=== PATIENT | male | born 1960 | race American Indian/Alaskan Native ===

== ENCOUNTER 2022-07-19 01:22 | Inpatient (IN) | payer MEDICARE, SELFPAY ==
[~2022-07-19] VITALS: Ht 175.3 cm; Wt 54.9 kg
[2022-07-19] MEDS ORDERED: ANEXSIA, NORCO 7.5MG/325MG TABLET(HYDROCODONE/APAP) PO ONE ×2 (02:05→06:25)
[2022-07-19 05:32] LABS: BASO # 0.1 10^3/uL (0.0-0.2); BASO % 0.7 % (0.0-1.0); EOS # 0.1 10^3/uL (0.0-0.5); EOS % 0.5 % (0.0-3.0); HEMATOCRIT 36.7 % (42.0-52.0); HEMOGLOBIN 12.6 g/dl (13.5-17.5); LYMPH # 1.4 10^3/uL (1.5-5.0); LYMPH % 14.3 % (24.0-44.0); MEAN CORPUSCULAR HEMOGLOBIN 33.7 pg (27.0-33.0); MEAN CORPUSCULAR HGB CONC 34.3 g/dl (32.0-36.5); MEAN CORPUSCULAR VOLUME 98.1 fl (80.0-96.0); MONO # 0.7 10^3/uL (0.0-0.8); MONO % 7.3 % (2.0-8.0); NEUTROPHILS # 7.2 10^3/uL (1.5-8.5); NEUTROPHILS % 76.4 % (36.0-66.0); PLATELET COUNT, AUTOMATED 303 10^3/uL (150-450); RED BLOOD COUNT 3.74 10^6/uL (4.30-6.10); WHITE BLOOD COUNT 9.4 10^3/uL (4.0-10.0)
[2022-07-19] MEDS ORDERED: HOME MED LIST COMPLETE! XX SCH (05:55)
[2022-07-19 05:59] LABS: BLOOD UREA NITROGEN 9 MG/DL (7-18); CALCIUM LEVEL 8.4 MG/DL (8.8-10.2); CARBON DIOXIDE LEVEL 23 MEQ/L (21-32); CHLORIDE LEVEL 109 MEQ/L (98-107); CREATININE FOR GFR 0.58 MG/DL (0.70-1.30); GLOMERULAR FILTRATION RATE > 60.0 (>49); GLUCOSE, FASTING 72 MG/DL (70-100); MAGNESIUM LEVEL 2.2 MG/DL (1.8-2.4); POTASSIUM SERUM 3.7 MEQ/L (3.5-5.1); SODIUM LEVEL 141 MEQ/L (136-145)
[2022-07-19] MEDS ORDERED: DEXTROSE 50% 50 ML SYRINGE IV PRN (06:30)
[2022-07-19] MEDS ORDERED: GLUCAGON INJ 1MG VIAL SC PRN (06:30)
[2022-07-19] MEDS ORDERED: GLUCOSE 4GM CHEW TABLET PO PRN (06:30)
[2022-07-19] MEDS ORDERED: NICOTINE 14 MG/24 HR TRANSDERMAL TD ONE (07:00)
[2022-07-19 07:55] LABS: RSV AMPLIFICATION NEGATIVE (NEGATIVE)
[2022-07-19 08:12] LABS: ALBUMIN 3.2 GM/DL (3.2-5.2); BILIRUBIN,DIRECT 0.2 MG/DL (0.0-0.2); BILIRUBIN,TOTAL 0.4 MG/DL (0.2-1.0); TOTAL PROTEIN 6.2 GM/DL (6.4-8.2)
[2022-07-19] MEDS: ACETAMINOPHEN TAB 650MG DOSE (2X325MG) PO PRN ×4 (08:30→20:41)
[2022-07-19 08:52] LABS: INR 0.88; PROTHROMBIN TIME 12.4 SECONDS (12.7-14.5)
[2022-07-19 08:53] LABS: PARTIAL THROMBOPLASTIN TIME 28.3 SECONDS (25.9-37.0)
[2022-07-19 12:00] VITALS: BP 176/106
[2022-07-19 14:00] VITALS: BP 173/107
[2022-07-19 15:41] VITALS: BP 168/97
[2022-07-19] MEDS ORDERED: HYDROMORPHONE HCL 0.5 MG/ 0.5 ML SYRINGE (J1170 PER 1) IV PRN ×2 (16:45)
[2022-07-19 22:00] VITALS: BP 166/95
[2022-07-19] MEDS: D5W/0.9% SODIUM CHLORIDE 1,000 ML IV SCH (23:42)
[2022-07-20 06:00] VITALS: BP 165/92
[2022-07-20 06:19] LABS: HEMATOCRIT 39.6 % (42.0-52.0); HEMOGLOBIN 13.7 g/dl (13.5-17.5); MEAN CORPUSCULAR HEMOGLOBIN 33.8 pg (27.0-33.0); MEAN CORPUSCULAR HGB CONC 34.6 g/dl (32.0-36.5); MEAN CORPUSCULAR VOLUME 97.8 fl (80.0-96.0); PLATELET COUNT, AUTOMATED 325 10^3/uL (150-450); RED BLOOD COUNT 4.05 10^6/uL (4.30-6.10); WHITE BLOOD COUNT 7.1 10^3/uL (4.0-10.0)
[2022-07-20 06:59] LABS: ALBUMIN 3.2 GM/DL (3.2-5.2); ALT/SGPT 66 U/L (12-78); BILIRUBIN,TOTAL 0.7 MG/DL (0.2-1.0); BLOOD UREA NITROGEN 10 MG/DL (7-18); CALCIUM LEVEL 8.8 MG/DL (8.8-10.2); CARBON DIOXIDE LEVEL 27 MEQ/L (21-32); CHLORIDE LEVEL 108 MEQ/L (98-107); CREATININE FOR GFR 0.77 MG/DL (0.70-1.30); GLOMERULAR FILTRATION RATE > 60.0 (>49); GLUCOSE, FASTING 128 MG/DL (70-100); POTASSIUM SERUM 4.1 MEQ/L (3.5-5.1); SODIUM LEVEL 137 MEQ/L (136-145); TOTAL PROTEIN 6.9 GM/DL (6.4-8.2)
[2022-07-20] MEDS: ACETAMINOPHEN TAB 650MG DOSE (2X325MG) PO PRN (09:10)
[2022-07-20] MEDS ORDERED: PERCOCET 5MG/325MG TAB PO PRN (10:50)
[2022-07-20] MEDS: PERCOCET 5MG/325MG TAB PO PRN ×3 (12:53→21:15)
[2022-07-20 14:00] VITALS: BP 139/84
[2022-07-20] MEDS: D5W/0.9% SODIUM CHLORIDE 1,000 ML IV SCH ×2 (15:01→18:49)
[2022-07-20] MEDS: NICOTINE 21MG/24HR 1 EA TRANSDERMAL TD SCH (15:01)
[2022-07-20 21:57] VITALS: BP 170/84
[2022-07-20 22:30] VITALS: BP 170/94
[2022-07-21 00:23] VITALS: BP 170/82
[2022-07-21] MEDS ORDERED: atenoloL 25 MG TAB PO ONE (01:00)
[2022-07-21] MEDS ORDERED: diphenhydrAMINE 25MG CAP PO PRN (01:05)
[2022-07-21] MEDS: PERCOCET 5MG/325MG TAB PO PRN ×4 (01:10→13:49)
[2022-07-21 02:03] VITALS: BP 150/80
[2022-07-21] MEDS: D5W/0.9% SODIUM CHLORIDE 1,000 ML IV SCH (04:13)
[2022-07-21 06:02] VITALS: BP 51/84
[2022-07-21 07:00] LABS: HEMATOCRIT 36.1 % (42.0-52.0); HEMOGLOBIN 11.9 g/dl (13.5-17.5); MEAN CORPUSCULAR HEMOGLOBIN 32.6 pg (27.0-33.0); MEAN CORPUSCULAR VOLUME 98.9 fl (80.0-96.0); PLATELET COUNT, AUTOMATED 274 10^3/uL (150-450); RED BLOOD COUNT 3.65 10^6/uL (4.30-6.10); WHITE BLOOD COUNT 7.8 10^3/uL (4.0-10.0)
[2022-07-21 07:35] VITALS: BP 148/83
[2022-07-21 07:39] LABS: ALBUMIN 2.9 GM/DL (3.2-5.2); ALT/SGPT 44 U/L (12-78); BILIRUBIN,TOTAL 0.7 MG/DL (0.2-1.0); BLOOD UREA NITROGEN 5 MG/DL (7-18); CALCIUM LEVEL 8.6 MG/DL (8.8-10.2); CARBON DIOXIDE LEVEL 22 MEQ/L (21-32); CHLORIDE LEVEL 106 MEQ/L (98-107); CREATININE FOR GFR 0.65 MG/DL (0.70-1.30); GLOMERULAR FILTRATION RATE > 60.0 (>49); GLUCOSE, FASTING 137 MG/DL (70-100); POTASSIUM SERUM 3.8 MEQ/L (3.5-5.1); SODIUM LEVEL 136 MEQ/L (136-145); TOTAL PROTEIN 5.8 GM/DL (6.4-8.2)
[2022-07-21] MEDS ORDERED: FUROSEMIDE 40MG/4ML VIAL (J1940) IV ONE (09:00)
[2022-07-21 09:24] LABS: NT-PRO BNP 342 PG/ML (<125)
[2022-07-21] MEDS: NICOTINE 21MG/24HR 1 EA TRANSDERMAL TD SCH (09:35)
[2022-07-21] MEDS ORDERED: ALBUTEROL SULFATE 2.5 MG/0.5 ML INH NEB SOLN NEB PRN (10:05)
[2022-07-21] MEDS ORDERED: VENTAER INH (11:29)
[2022-07-21] MEDS ORDERED: NAPR-849 PO (11:29)
[2022-07-21] MEDS ORDERED: OXYC1TAB23 PO (11:29)
[2022-07-21 11:38] LABS: FOLATE 13.2 NG/ML (>5.4)
== END 2022-07-21 14:30 | disposition home or self-care (01) | DRG 563 ==
LOC: M ED 01:22 → EDBD 01:22 → M ED INP 06:37 → ENRESERV 08:12 → M MS5PR 11:50
PROVIDERS: ADMIT Family Medicine; ATTEND Internal Medicine
DX: S42.021A Displaced fracture of shaft of right clavicle, initial encounter for closed fracture (principal); I10 Essential (primary) hypertension; D53.9 Nutritional anemia, unspecified; F31.9 Bipolar disorder, unspecified; R07.81 Pleurodynia; Z59.00 Homelessness unspecified; F17.200 Nicotine dependence, unspecified, uncomplicated; Z88.5 Allergy status to narcotic agent; Y04.0XXA Assault by unarmed brawl or fight, initial encounter; Y92.838 Other recreation area as the place of occurrence of the external cause

== ENCOUNTER 2022-07-24 11:24 | Emergency (ER) | payer MEDICARE ==
[~2022-07-24] VITALS: Ht 175.3 cm; Wt 57.0 kg
[~2022-07-24 11:24] MED LIST: NAPR-849 PO; OXYC1TAB23 PO; VENTAER INH
[2022-07-24] MEDS ORDERED: IBUPROFEN 600MG TAB PO ONE (14:55)
[2022-07-24 17:24] VITALS: BP 121/57
== END 2022-07-24 12:30 | disposition left against medical advice (07) ==
LOC: M ED 11:24
DX: Z53.21 Procedure and treatment not carried out due to patient leaving prior to being seen by health care provider (principal)

== ENCOUNTER → 2022-09-11 | Outpatient (CLI) | payer MEDICARE | LOC: M SOG 15:38 | PROVIDERS: ATTEND Student in an Organized Health Care Education/Training Program | DX: S42.001D Fracture of unspecified part of right clavicle, subsequent encounter for fracture with routine healing (principal) ==

== ENCOUNTER → 2022-09-24 | Outpatient (REF) | payer MEDICARE ==
[2022-09-24 19:34] LABS: ALBUMIN 3.9 GM/DL (3.2-5.2); ALT/SGPT 64 U/L (12-78); BILIRUBIN,TOTAL 1.1 MG/DL (0.2-1.0); BLOOD UREA NITROGEN 8 MG/DL (7-18); CALCIUM LEVEL 9.9 MG/DL (8.8-10.2); CARBON DIOXIDE LEVEL 28 MEQ/L (21-32); CHLORIDE LEVEL 104 MEQ/L (98-107); CHOLESTEROL LEVEL 194 MG/DL (<200); CREATININE FOR GFR 0.95 MG/DL (0.70-1.30); GLOMERULAR FILTRATION RATE > 60.0 (>49); GLUCOSE, FASTING 118 MG/DL (70-100); HDL CHOLESTEROL 131 MG/DL (>40); LDL CHOLESTEROL 51 MG/DL (<100); NON-HDL-C 63 MG/DL; POTASSIUM SERUM 5.1 MEQ/L (3.5-5.1); SODIUM LEVEL 137 MEQ/L (136-145); TOTAL PROTEIN 7.6 GM/DL (6.4-8.2); TRIGLYCERIDES LEVEL 58 MG/DL (<150)
== END ==
LOC: M LAB REF 16:24
PROVIDERS: ATTEND Nurse Practitioner Family
DX: I10 Essential (primary) hypertension (principal); Z13.228 Encounter for screening for other metabolic disorders

== ENCOUNTER → 2022-10-30 | Outpatient (CLI) | payer MEDICARE | LOC: M SOG 09:14 | PROVIDERS: ATTEND Orthopaedic Surgery Adult Reconstructive Orthopaedic Surgery | DX: M25.761 Osteophyte, right knee (principal) ==

== ENCOUNTER → 2022-11-06 | Outpatient (CLI) | payer MEDICARE | LOC: M SOG 09:18 | PROVIDERS: ATTEND Student in an Organized Health Care Education/Training Program | DX: S42.001D Fracture of unspecified part of right clavicle, subsequent encounter for fracture with routine healing (principal); Z53.9 Procedure and treatment not carried out, unspecified reason ==

== ENCOUNTER 2023-06-26 14:56 | Emergency (ER) | payer MEDICARE, MEDICAID ==
[~2023-06-26] VITALS: Ht 175.3 cm; Wt 54.5 kg
[~2023-06-26 14:56] MED LIST changes: +BENZ200C70 PO; +GABA-1171 PO; +LOPE2TAB14 PO; +NAPR-837 PO; +NICO1DIS7 TD; +PRAZ1CAP PO; +ROSU20TA61 PO
[2023-06-26 15:13] VITALS: BP 166/96; TEMP 97.1; O2SAT 90
== END 2023-06-26 16:30 | disposition left against medical advice (07) ==
LOC: EDBD 14:56 → M ED 16:24
DX: Z53.21 Procedure and treatment not carried out due to patient leaving prior to being seen by health care provider (principal)

== ENCOUNTER 2023-07-24 18:08 | Emergency (ER) | payer MEDICARE, MEDICAID | END 2023-07-24 20:44 | disposition left against medical advice (07) | LOC: M ED 18:08 | DX: Z53.21 Procedure and treatment not carried out due to patient leaving prior to being seen by health care provider (principal) ==

== ENCOUNTER → 2023-09-03 | Outpatient (CLI) | payer MEDICARE, MEDICAID | LOC: M RAD 12:22 | PROVIDERS: ATTEND Family Medicine Addiction Medicine | DX: M25.521 Pain in right elbow (principal); S52.021D Displaced fracture of olecranon process without intraarticular extension of right ulna, subsequent encounter for closed fracture with routine healing ==

== ENCOUNTER → 2023-09-11 | Outpatient (CLI) | payer MEDICARE, MEDICAID | LOC: M SOG 10:47 | PROVIDERS: ATTEND Orthopaedic Surgery Hand Surgery | DX: S52.021A Displaced fracture of olecranon process without intraarticular extension of right ulna, initial encounter for closed fracture (principal); Y93.9 Activity, unspecified; Y92.9 Unspecified place or not applicable ==

== ENCOUNTER → 2023-09-18 | Outpatient (REF) | payer MEDICARE, MEDICAID ==
[2023-09-18 15:30] LABS: ALBUMIN 4.2 G/DL (3.2-5.2); ALKALINE PHOSPHATASE 130 U/L (46-116); ALT/SGPT 14 U/L (7.0-40); AST/SGOT 16 U/L (<34); BILIRUBIN,TOTAL 0.8 MG/DL (0.3-1.2); BLOOD UREA NITROGEN 6 MG/DL (9-23); CALCIUM LEVEL 9.9 MG/DL (8.3-10.6); CARBON DIOXIDE LEVEL 28 MMOL/L (20-31); CHLORIDE LEVEL 105 MMOL/L (98-107); CREATININE FOR GFR 0.72 MG/DL (0.70-1.30); GLOMERULAR FILTRATION RATE > 60.0 (>49); GLUCOSE, FASTING 91 MG/DL (74-106); POTASSIUM SERUM 5.4 MMOL/L (3.5-5.1); SODIUM LEVEL 139 MMOL/L (136-145); TOTAL PROTEIN 7.2 G/DL (5.7-8.2)
== END ==
LOC: M LAB REF 12:24
PROVIDERS: ATTEND Family Medicine Addiction Medicine
DX: T39.311A Poisoning by propionic acid derivatives, accidental (unintentional), initial encounter (principal)

== ENCOUNTER → 2023-10-08 | Outpatient (CLI) | payer MEDICARE, MEDICAID | LOC: M SOG 13:18 | PROVIDERS: ATTEND Physician Assistant | DX: S52.021D Displaced fracture of olecranon process without intraarticular extension of right ulna, subsequent encounter for closed fracture with routine healing (principal); M25.531 Pain in right wrist ==

== ENCOUNTER → 2023-11-09 | Outpatient (CLI) | payer MEDICARE, MEDICAID | LOC: M SOG 08:06 | PROVIDERS: ATTEND Physician Assistant | DX: S52.021D Displaced fracture of olecranon process without intraarticular extension of right ulna, subsequent encounter for closed fracture with routine healing (principal); Z53.9 Procedure and treatment not carried out, unspecified reason ==

== ENCOUNTER → 2023-11-18 | Outpatient (CLI) | payer MEDICARE, MEDICAID | LOC: M SOG 07:58 | PROVIDERS: ATTEND Physician Assistant | DX: S52.021D Displaced fracture of olecranon process without intraarticular extension of right ulna, subsequent encounter for closed fracture with routine healing (principal); Z53.9 Procedure and treatment not carried out, unspecified reason ==

== ENCOUNTER 2024-03-03 09:40 | Day surgery (SDC) | payer MEDICARE, MEDICAID ==
[~2024-03-03] VITALS: Ht 175.3 cm; Wt 63.6 kg
[~2024-03-03 09:40] MED LIST changes: +ATROPINE SULFATE 1% OPHTH SOLN 2ML BTL OS SCH; +DULO1CAP5 PO; +LIDOCAINE 3.5 % 1ML OPHTH TOPICAL GEL OU ONE; +MIDAZOLAM INJ 2MG/2ML VIAL As Ordered ONE; +OFLOXACIN 0.3 % (OCUFLOX) OPTH SOL 5ML OS ONE; +PHENYLEPHRINE 10% OPHTH SOL 5ML OS PRN; +PHENYLEPHRINE 2.5% OPHTH SOL 2ML OS SCH; +TROPICAMIDE 1% OPHTH SOLN 15ML OS SCH; +fentaNYL 100 MCG/2 ML INJECTION As Ordered ONE
[2024-03-03] MEDS: OFLOXACIN 0.3 % (OCUFLOX) OPTH SOL 5ML OS ONE (10:20)
[2024-03-03] MEDS: LIDOCAINE 3.5 % 1ML OPHTH TOPICAL GEL OU ONE (10:20)
[2024-03-03] MEDS: PHENYLEPHRINE 2.5% OPHTH SOL 2ML OS SCH (10:31)
[2024-03-03] MEDS: ATROPINE SULFATE 1% OPHTH SOLN 2ML BTL OS SCH (10:31)
[2024-03-03] MEDS: TROPICAMIDE 1% OPHTH SOLN 15ML OS SCH (10:31)
[2024-03-03] MEDS: LIDOCAINE 1% SDV 5ML VIAL As Ordered ONE (11:11)
[2024-03-03] MEDS: BSS IRRIG/VANCO(10MG)/TOBRA(5MG)/EPINEPH(1:1000-0.5CC)500ML BAG-ORONLY As Ordered ONE (11:18)
[2024-03-03] MEDS: CEFUROXIME 1MG/0.1ML INTRACAMERAL INJ As Ordered ONE (11:19)
[2024-03-03] MEDS ORDERED: DUOVISC (0.50ML VISCOAT/0.85ML PROVISC) OPHTH KIT As Ordered ONE (11:23)
[2024-03-03] MEDS: CARBACHOL 0.01% OPHTH SOLN 1.5ML VIAL As Ordered ONE (11:32)
[2024-03-03 11:40] VITALS: BP 161/83; TEMP 97; O2SAT 96
== END 2024-03-03 12:30 | disposition home or self-care (01) ==
LOC: M SDC 09:40
PROVIDERS: ATTEND Ophthalmology
DX: H25.12 Age-related nuclear cataract, left eye (principal); F41.9 Anxiety disorder, unspecified; F32.A Depression, unspecified; Z79.899 Other long term (current) drug therapy; F17.218 Nicotine dependence, cigarettes, with other nicotine-induced disorders; F12.10 Cannabis abuse, uncomplicated; Z88.5 Allergy status to narcotic agent
CPT/HCPCS: 66984; J0697; J2250; J3010; V2632

== ENCOUNTER 2024-05-27 23:29 | Inpatient (IN) | payer MEDICARE, MEDICAID ==
[~2024-05-27] VITALS: Ht 175.3 cm; Wt 61.2 kg
[~2024-05-27 23:29] MED LIST changes: -ATROPINE SULFATE 1% OPHTH SOLN 2ML BTL OS SCH; -LIDOCAINE 3.5 % 1ML OPHTH TOPICAL GEL OU ONE; -MIDAZOLAM INJ 2MG/2ML VIAL As Ordered ONE; -OFLOXACIN 0.3 % (OCUFLOX) OPTH SOL 5ML OS ONE; -PHENYLEPHRINE 10% OPHTH SOL 5ML OS PRN; -PHENYLEPHRINE 2.5% OPHTH SOL 2ML OS SCH; -TROPICAMIDE 1% OPHTH SOLN 15ML OS SCH; -fentaNYL 100 MCG/2 ML INJECTION As Ordered ONE
[2024-05-28] VITALS (10 sets, daily range): BP systolic 130–175; BP diastolic 65–93; TEMP 97.3–98.1; O2SAT 92–94
[2024-05-28] MEDS ORDERED: ISOVUE-370 76% 100ML VIAL As Ordered ONE (00:09)
[2024-05-28 00:11] LABS: HEMATOCRIT 36.3 % (42.0-52.0); HEMOGLOBIN 13.1 g/dl (13.5-17.5); MEAN CORPUSCULAR HEMOGLOBIN 31.6 pg (27.0-33.0); MEAN CORPUSCULAR HGB CONC 36.1 g/dl (32.0-36.5); MEAN CORPUSCULAR VOLUME 87.5 fl (80.0-96.0); PLATELET COUNT, AUTOMATED 306 10^3/uL (150-450); RED BLOOD COUNT 4.15 10^6/uL (4.30-6.10)
[2024-05-28 00:24] LABS: INR 1.03; PROTHROMBIN TIME 13.2 SECONDS (12.5-14.5)
[2024-05-28 00:30] LABS: ETHYL ALCOHOL (ETHANOL) 0.293 % (0.000-0.010)
[2024-05-28 00:32] LABS: BILIRUBIN,DIRECT 0.3 MG/DL (<0.4); BILIRUBIN,TOTAL 1.2 MG/DL (0.3-1.2); TOTAL PROTEIN 6.6 G/DL (5.7-8.2)
[2024-05-28 00:53] LABS: APPEARANCE, URINE CLEAR (CLEAR); BACTERIA, URINE AUTO NEGATIVE (NEGATIVE); BILIRUBIN, URINE AUTO NEGATIVE (NEGATIVE); BLOOD, URINE BLOOD 2+ (NEGATIVE); COLOR, URINE STRAW (YELLOW); GLUCOSE, URINE (UA) AUTO NEGATIVE (NEGATIVE); KETONE, URINE AUTO NEGATIVE (NEGATIVE); LEUKOCYTE ESTERASE, URINE AUTO NEGATIVE (NEGATIVE); NITRITE, URINE AUTO NEGATIVE (NEGATIVE); PROTEIN, URINE AUTO NEGATIVE (NEGATIVE); RBC, URINE AUTO 0 /HPF (0-3); SPECIFIC GRAVITY URINE AUTO 1.008 (1.002-1.035); SQUAMOUS EPITHELIAL CELL UR AU 0 /HPF (0-6); UROBILINOGEN, URINE AUTO 0.2 mg/dL (0.0-2.0); WBC, URINE AUTO 0 /HPF (0-3)
[2024-05-28] MEDS ORDERED: ONDANSETRON 4MG 2ML VIAL As Ordered ONE (01:02)
[2024-05-28] MEDS ORDERED: NICOTINE POLACRILEX 2 MG GUM PO ONE (01:05)
[2024-05-28] MEDS ORDERED: LORazepam 1 MG TAB PO STA (01:05)
[2024-05-28] MEDS: ONDANSETRON 4MG 2ML VIAL IV ONE (01:06)
[2024-05-28] MEDS: KETOROLAC 30 MG/ML 1ML VIAL IV ONE (01:07)
[2024-05-28 01:17] LABS: AMPHETAMINES LEVEL URINE NEGATIVE (NEGATIVE); BARBITURATES URINE NEGATIVE (NEGATIVE); BENZODIAZEPINES URINE NEGATIVE (NEGATIVE); COCAINE METABOLITE URINE NEGATIVE (NEGATIVE); METHADONE URINE NEGATIVE (NEGATIVE); OPIATES URINE NEGATIVE (NEGATIVE); PHENCYCLIDINE URINE NEGATIVE (NEGATIVE)
[2024-05-28 01:24] LABS: CANNABINOIDS URINE POSITIVE (NEGATIVE)
[2024-05-28] MEDS: diphenhydrAMINE 50MG/ML VIAL IV STA (02:30)
[2024-05-28] MEDS: HYDROMORPHONE HCL 0.5 MG/ 0.5 ML SYRINGE IV ONE (02:31)
[2024-05-28] MEDS ORDERED: DULO1CAP6 PO (02:35)
[2024-05-28] MEDS ORDERED: HOME MED LIST COMPLETE! XX SCH (02:40)
[2024-05-28] MEDS: ceFAZolin SOD 2 GM in IV 1 EA IV ONE (03:37)
[2024-05-28] MEDS ORDERED: LR 1,000 ML IV SCH (04:05)
[2024-05-28] MEDS ORDERED: HYDROMORPHONE HCL 0.5 MG/ 0.5 ML SYRINGE IV PRN (04:05)
[2024-05-28] MEDS ORDERED: ACETAMINOPHEN TAB 650MG DOSE (2X325MG) PO PRN (04:05)
[2024-05-28] MEDS ORDERED: MAALOX 30 ML SUSP *UDC PO PRN (04:05)
[2024-05-28] MEDS ORDERED: MOM 30ML SUSPENSION UDC PO PRN (04:05)
[2024-05-28] MEDS: NS 1,000 ML IV SCH (04:52)
[2024-05-28] MEDS: NICOTINE 21MG/24HR 1 EA TRANSDERMAL TD ONE (04:52)
[2024-05-28 05:13] LABS: BASO # 0.1 10^3/uL (0.0-0.2); BASO % 0.8 % (0.0-1.0); EOS # 0.1 10^3/uL (0.0-0.5); EOS % 0.6 % (0.0-3.0); LYMPH # 3.5 10^3/uL (1.5-5.0); LYMPH % 29.7 % (24.0-44.0); MONO # 0.8 10^3/uL (0.0-0.8); MONO % 6.6 % (2.0-8.0); NEUTROPHILS # 7.3 10^3/uL (1.5-8.5); NEUTROPHILS % 61.7 % (36.0-66.0)
[2024-05-28 05:53] LABS: BASO # 0.1 10^3/uL (0.0-0.2); BASO % 0.7 % (0.0-1.0); EOS % 0.1 % (0.0-3.0); HEMATOCRIT 40.2 % (42.0-52.0); HEMOGLOBIN 14.1 g/dl (13.5-17.5); LYMPH # 2.1 10^3/uL (1.5-5.0); LYMPH % 18.6 % (24.0-44.0); MEAN CORPUSCULAR HEMOGLOBIN 31.4 pg (27.0-33.0); MEAN CORPUSCULAR HGB CONC 35.1 g/dl (32.0-36.5); MEAN CORPUSCULAR VOLUME 89.5 fl (80.0-96.0); MONO # 0.7 10^3/uL (0.0-0.8); MONO % 6.5 % (2.0-8.0); NEUTROPHILS # 8.2 10^3/uL (1.5-8.5); NEUTROPHILS % 73.7 % (36.0-66.0); PLATELET COUNT, AUTOMATED 315 10^3/uL (150-450); RED BLOOD COUNT 4.49 10^6/uL (4.30-6.10); WHITE BLOOD COUNT 11.2 10^3/uL (4.0-10.0)
[2024-05-28 06:19] LABS: ALBUMIN 4.1 G/DL (3.2-5.2); ALKALINE PHOSPHATASE 203 U/L (46-116); ALT/SGPT 40 U/L (7.0-40); AST/SGOT 55 U/L (<34); BILIRUBIN,TOTAL 1.1 MG/DL (0.3-1.2); BLOOD UREA NITROGEN 7 MG/DL (9-23); CALCIUM LEVEL 8.6 MG/DL (8.3-10.6); CARBON DIOXIDE LEVEL 25 MMOL/L (20-31); CHLORIDE LEVEL 96 MMOL/L (98-107); GLOMERULAR FILTRATION RATE > 60.0 (>49); GLUCOSE, FASTING 88 MG/DL (74-106); MAGNESIUM LEVEL 1.9 MG/DL (1.8-2.4); POTASSIUM SERUM 4.6 MMOL/L (3.5-5.1); SODIUM LEVEL 130 MMOL/L (136-145); TOTAL PROTEIN 6.8 G/DL (5.7-8.2)
[2024-05-28] MEDS ORDERED: NICOTINE 21MG/24HR 1 EA TRANSDERMAL TD SCH (09:00)
[2024-05-28] MEDS: THIAMINE 100 MG TAB PO SCH (09:00)
[2024-05-28] MEDS: DOCUSATE SODIUM 100MG CAPSULE PO SCH (10:12)
[2024-05-28] MEDS: MULTIVITAMINS/MINERALS THERAP 1 TAB PO SCH (10:12)
[2024-05-28] MEDS: FOLIC ACID 1MG TAB PO SCH (10:12)
[2024-05-28] MEDS: ONDANSETRON 4MG 2ML VIAL IV PRN (10:13)
[2024-05-28] MEDS: HYDROMORPHONE HCL 0.5 MG/ 0.5 ML SYRINGE IV PRN (10:13)
[2024-05-28] MEDS: BOOSTRIX VACCINE (TETANUS/DIPHTH/ACEL. PERTUSSIS) 0.5ML SYR IM ONE (10:40)
[2024-05-28] MEDS: DULoxetine 30MG CAPSULE (CYMBALTA) PO SCH (11:28)
[2024-05-28] MEDS: ceFAZolin SOD 2 GM in IV 1 EA IV SCH (11:32)
[2024-05-28 12:38] LABS: BLOOD UREA NITROGEN 7 MG/DL (9-23); CALCIUM LEVEL 8.3 MG/DL (8.3-10.6); CARBON DIOXIDE LEVEL 23 MMOL/L (20-31); CHLORIDE LEVEL 99 MMOL/L (98-107); GLOMERULAR FILTRATION RATE > 60.0 (>49); GLUCOSE, FASTING 88 MG/DL (74-106); POTASSIUM SERUM 4.4 MMOL/L (3.5-5.1); SODIUM LEVEL 131 MMOL/L (136-145)
[2024-05-28] MEDS: LORazepam 2 MG TAB PO PRN (13:07)
[2024-05-28] MEDS: LR 1,000 ML IV ONE (13:20)
[2024-05-28] MEDS: TAMSULOSIN 0.4 MG CAP PO SCH (20:13)
[2024-05-29] VITALS (9 sets, daily range): BP systolic 114–150; BP diastolic 56–81; TEMP 97.2–98.2; O2SAT 92–98
[2024-05-29 06:58] LABS: HEMATOCRIT 32.4 % (42.0-52.0); MEAN CORPUSCULAR HEMOGLOBIN 31.7 pg (27.0-33.0); MEAN CORPUSCULAR HGB CONC 35.5 g/dl (32.0-36.5); MEAN CORPUSCULAR VOLUME 89.3 fl (80.0-96.0); PLATELET COUNT, AUTOMATED 240 10^3/uL (150-450); RED BLOOD COUNT 3.63 10^6/uL (4.30-6.10); WHITE BLOOD COUNT 6.3 10^3/uL (4.0-10.0)
[2024-05-29 07:20] LABS: HEMOGLOBIN 11.5 g/dl (13.5-17.5)
[2024-05-29 07:26] LABS: ALBUMIN 2.9 G/DL (3.2-5.2); ALKALINE PHOSPHATASE 161 U/L (46-116); ALT/SGPT 24 U/L (7.0-40); AST/SGOT 35 U/L (<34); BLOOD UREA NITROGEN 8 MG/DL (9-23); CALCIUM LEVEL 7.8 MG/DL (8.3-10.6); CARBON DIOXIDE LEVEL 27 MMOL/L (20-31); CHLORIDE LEVEL 101 MMOL/L (98-107); CREATININE FOR GFR 0.63 MG/DL (0.70-1.30); GLOMERULAR FILTRATION RATE > 60.0 (>49); GLUCOSE, FASTING 97 MG/DL (74-106); MAGNESIUM LEVEL 1.8 MG/DL (1.8-2.4); SODIUM LEVEL 132 MMOL/L (136-145)
[2024-05-29] MEDS: NICOTINE 21MG/24HR 1 EA TRANSDERMAL TD SCH (08:27)
[2024-05-29] MEDS: ceFAZolin 2 GM/D5W 50 ML IV BAG As Ordered ONE (10:07)
[2024-05-29] MEDS: TRANEXAMIC ACID 100 MG/ML 10ML VIAL As Ordered ONE (10:18)
[2024-05-29] MEDS ORDERED: LIDOCAINE 2% 100MG/5ML SDV (FOR ANES.) As Ordered ONE (10:33)
[2024-05-29] MEDS ORDERED: MIDAZOLAM INJ 2MG/2ML VIAL As Ordered ONE (10:33)
[2024-05-29] MEDS ORDERED: ACETAMINOPHEN 1000MG 100ML IV BAG As Ordered ONE (10:33)
[2024-05-29] MEDS ORDERED: propofoL 200 MG/20 ML VIAL As Ordered ONE (10:33)
[2024-05-29] MEDS ORDERED: SUGAMMADEX SODIUM 500 MG/5 ML VIAL (BRIDION) As Ordered ONE (10:33)
[2024-05-29] MEDS ORDERED: fentaNYL 100 MCG/2 ML INJECTION As Ordered ONE (10:33)
[2024-05-29] MEDS ORDERED: ROCURONIUM BROMIDE 50MG/5ML VIAL As Ordered ONE (10:33)
[2024-05-29] MEDS ORDERED: KETOROLAC 60MG 2ML VIAL As Ordered ONE (11:09)
[2024-05-29] MEDS ORDERED: oxyCODONE 5MG TAB PO PRN (11:25)
[2024-05-29] MEDS: NS 1,000 ML IV SCH (11:25)
[2024-05-29] MEDS ORDERED: ONDANSETRON 4MG 2ML VIAL IV PRN (11:25)
[2024-05-29] MEDS ORDERED: fentaNYL 100 MCG/2 ML INJECTION IV PRN (11:25)
[2024-05-29] MEDS: HYDROMORPHONE HCL 0.5 MG/ 0.5 ML SYRINGE IV PRN (11:40)
[2024-05-29] MEDS: PANTOPRAZOLE 40MG VIAL IV SCH (13:11)
[2024-05-30] VITALS (8 sets, daily range): BP systolic 129–140; BP diastolic 73–89; TEMP 97.5–98.4; O2SAT 93–97
[2024-05-30 00:57] LABS: BLOOD UREA NITROGEN < 5 MG/DL (9-23); CALCIUM LEVEL 7.8 MG/DL (8.3-10.6); CARBON DIOXIDE LEVEL 26 MMOL/L (20-31); CHLORIDE LEVEL 102 MMOL/L (98-107); CREATININE FOR GFR 0.62 MG/DL (0.70-1.30); GLOMERULAR FILTRATION RATE > 60.0 (>49); GLUCOSE, FASTING 141 MG/DL (74-106); POTASSIUM SERUM 3.9 MMOL/L (3.5-5.1); SODIUM LEVEL 131 MMOL/L (136-145)
[2024-05-30 06:29] LABS: BASO % 0.6 % (0.0-1.0); EOS % 0.4 % (0.0-3.0); HEMATOCRIT 31.6 % (42.0-52.0); HEMOGLOBIN 11.1 g/dl (13.5-17.5); LYMPH # 1.9 10^3/uL (1.5-5.0); MEAN CORPUSCULAR HGB CONC 35.1 g/dl (32.0-36.5); MEAN CORPUSCULAR VOLUME 91.1 fl (80.0-96.0); MONO # 0.5 10^3/uL (0.0-0.8); MONO % 7.2 % (2.0-8.0); NEUTROPHILS # 4.6 10^3/uL (1.5-8.5); NEUTROPHILS % 64.5 % (36.0-66.0); PLATELET COUNT, AUTOMATED 227 10^3/uL (150-450); RED BLOOD COUNT 3.47 10^6/uL (4.30-6.10); WHITE BLOOD COUNT 7.2 10^3/uL (4.0-10.0)
[2024-05-30 07:01] LABS: BLOOD UREA NITROGEN < 5 MG/DL (9-23); CALCIUM LEVEL 7.9 MG/DL (8.3-10.6); CARBON DIOXIDE LEVEL 27 MMOL/L (20-31); CHLORIDE LEVEL 104 MMOL/L (98-107); GLOMERULAR FILTRATION RATE > 60.0 (>49); GLUCOSE, FASTING 112 MG/DL (74-106); POTASSIUM SERUM 3.7 MMOL/L (3.5-5.1); SODIUM LEVEL 135 MMOL/L (136-145)
[2024-05-30] MEDS ORDERED: PERCOCET 5MG/325MG TAB PO PRN (10:05)
[2024-05-30] MEDS: ENOXAPARIN 40MG/0.4ML SYRINGE (J1650 PER 10MG) SC SCH (10:52)
[2024-05-30] MEDS: PERCOCET 5MG/325MG TAB PO PRN (14:09)
[2024-05-30] MEDS: CEPHALEXIN 500 MG CAP PO SCH (17:46)
[2024-05-31 04:00] VITALS: BP 158/88; TEMP 97.7; O2SAT 97
[2024-05-31 06:00] VITALS: BP 158/88
[2024-05-31 06:21] LABS: BASO % 0.7 % (0.0-1.0); EOS # 0.1 10^3/uL (0.0-0.5); EOS % 0.9 % (0.0-3.0); HEMOGLOBIN 11.4 g/dl (13.5-17.5); LYMPH # 1.6 10^3/uL (1.5-5.0); LYMPH % 27.5 % (24.0-44.0); MEAN CORPUSCULAR HEMOGLOBIN 32.1 pg (27.0-33.0); MEAN CORPUSCULAR HGB CONC 35.6 g/dl (32.0-36.5); MEAN CORPUSCULAR VOLUME 90.1 fl (80.0-96.0); MONO # 0.4 10^3/uL (0.0-0.8); MONO % 7.4 % (2.0-8.0); NEUTROPHILS # 3.7 10^3/uL (1.5-8.5); NEUTROPHILS % 63.2 % (36.0-66.0); PLATELET COUNT, AUTOMATED 230 10^3/uL (150-450); RED BLOOD COUNT 3.55 10^6/uL (4.30-6.10); WHITE BLOOD COUNT 5.8 10^3/uL (4.0-10.0)
[2024-05-31 06:46] LABS: BLOOD UREA NITROGEN 5 MG/DL (9-23); CALCIUM LEVEL 8.6 MG/DL (8.3-10.6); CARBON DIOXIDE LEVEL 28 MMOL/L (20-31); CHLORIDE LEVEL 104 MMOL/L (98-107); CREATININE FOR GFR 0.62 MG/DL (0.70-1.30); GLOMERULAR FILTRATION RATE > 60.0 (>49); GLUCOSE, FASTING 109 MG/DL (74-106); POTASSIUM SERUM 3.7 MMOL/L (3.5-5.1); SODIUM LEVEL 136 MMOL/L (136-145)
[2024-05-31] MEDS: amLODIPine 5 MG TAB PO SCH (09:03)
[2024-05-31] MEDS ORDERED: FLOM0.4C39 PO (10:48)
[2024-05-31] MEDS ORDERED: PERCOCET PO (10:48)
[2024-05-31] MEDS ORDERED: MULT-90 PO (10:48)
[2024-05-31] MEDS ORDERED: COLA100C5 PO (10:48)
[2024-05-31] MEDS ORDERED: FOLI1TAB11 PO (10:48)
[2024-05-31] MEDS ORDERED: CEPH500C PO (10:48)
[2024-05-31] MEDS ORDERED: PROT1TAB2 PO (10:48)
[2024-05-31] MEDS ORDERED: AMLO1TAB24 PO (10:48)
[2024-05-31 11:15] VITALS: BP 165/90
[2024-05-31] MEDS: amLODIPine 5 MG TAB PO ONE (11:35)
[2024-05-31 12:00] VITALS: BP 160/88; TEMP 97.7; O2SAT 93
[2024-05-31] MEDS: LORazepam 1 MG TAB PO ONE (12:08)
[2024-05-31] MEDS ORDERED: PILL CUTTER 1 EACH XX PRN (12:55)
[2024-05-31 13:06] VITALS: BP 159/87
[2024-05-31] MEDS: **hydrALAZINE HCL** 25 MG TAB PO ONE (13:06)
[2024-05-31 13:30] VITALS: BP 152/86
[2024-05-31] MEDS ORDERED: AMLO1TAB25 PO (13:52)
[2024-05-31] MEDS ORDERED: HYDR25TA88 PO (13:52)
== END 2024-05-31 15:45 | disposition home health service (06) | DRG 513 ==
LOC: M ED 23:29 → M ED INP 05-28 04:03 → M MSPAV 05-28 05:07
PROVIDERS: ADMIT Family Medicine; ATTEND Internal Medicine
PROC: 0X6T0Z1 Detachment at Left Ring Finger, High, Open Approach (ICD-10-PCS; principal; 2024-05-29 09:00)
DX: S62.665B Nondisplaced fracture of distal phalanx of left ring finger, initial encounter for open fracture (principal); G92.9 Unspecified toxic encephalopathy; E87.20 Acidosis, unspecified; E87.1 Hypo-osmolality and hyponatremia; S32.2XXA Fracture of coccyx, initial encounter for closed fracture; F31.9 Bipolar disorder, unspecified; I10 Essential (primary) hypertension; F10.20 Alcohol dependence, uncomplicated; R29.6 Repeated falls; H54.8 Legal blindness, as defined in USA; G62.9 Polyneuropathy, unspecified; D72.829 Elevated white blood cell count, unspecified; F17.200 Nicotine dependence, unspecified, uncomplicated; K29.20 Alcoholic gastritis without bleeding; Z98.42 Cataract extraction status, left eye; R33.9 Retention of urine, unspecified; Z88.5 Allergy status to narcotic agent; Z79.899 Other long term (current) drug therapy; S42.142A Displaced fracture of glenoid cavity of scapula, left shoulder, initial encounter for closed fracture; M19.90 Unspecified osteoarthritis, unspecified site; S00.83XA Contusion of other part of head, initial encounter; S62.521A Displaced fracture of distal phalanx of right thumb, initial encounter for closed fracture; W18.30XA Fall on same level, unspecified, initial encounter; Y92.009 Unspecified place in unspecified non-institutional (private) residence as the place of occurrence of the external cause